=== PATIENT | female | born 1955 | race Asian ===

== ENCOUNTER 2018-08-12 14:24 | Emergency (ER) | payer OTHER ==
[~2018-08-12] VITALS: Ht 162.6 cm; Wt 50.3 kg
[2018-08-12 14:42] VITALS: BP 139/85
[2018-08-12 15:00] VITALS: BP 173/85
--- NOTE | 2018-08-12 15:26 | Emergency Room Report ---
History of Present Illness General Chief Complaint: Generalized Weakness Source: Patient Present Illness HPI This patient states that since her father on July 17, she has had a loss of appetite, fatigue and generalized weakness. She states that she occasionally has a cough. She does not have a sore throat. She denies body aches. She denies dysuria or hematuria. She denies chest pain or shortness of breath. She has no other complaints. Allergies: Coded Allergies: No Known Allergies (Unverified , 08/12/18) Patient History Past Medical History: see triage record, DM, HTN Social History: Denies: smoking, alcohol use, drug use Reviewed Nursing Documentation: PMH: Agreed; PSxH: Agreed Nursing Documentation-PMH Past Medical History: No History, Except For Hx Diabetes: Yes Review of Systems All Other Systems: negative except mentioned in HPI Physical Exam Vital Signs Date Time Temp Pulse Resp B/P (MAP) Pulse Ox O2 Delivery O2 Flow Rate FiO2 08/12/18 14:39 99.0 91 17 139/85 98 Room Air Sp02 EP Interpretation: reviewed, normal General Appearance: no apparent distress, alert, GCS 15, non-toxic Head: normocephalic, atraumatic Eyes: bilateral eye normal inspection, bilateral eye PERRL ENT: hearing grossly normal, normal pharynx, no angioedema, normal voice Neck: full range of motion, supple/symm/no masses Respiratory: chest non-tender, lungs clear, normal breath sounds, no respiratory distress, no retraction, no accessory muscle use, speaking full sentences Cardiovascular #1: regular rate, rhythm, no edema Gastrointestinal: normal bowel sounds, non tender, soft, non-distended, no guarding, no rebound Rectal: deferred Musculoskeletal: back normal, gait/station normal, normal range of motion, non- tender Neurologic: alert, oriented x3, responsive, motor strength/tone normal, sensory intact, speech normal Psychiatric: judgement/insight normal, memory normal, mood/affect normal, no suicidal/homicidal ideation Skin: normal color, no rash, warm/dry, well hydrated Medical Decision Making Diagnostic Impression: Primary Impression: Fatigue Additional Impressions: Depression Hypertension UTI (urinary tract infection) Poorly controlled diabetes mellitus ER Course This patient has very nonspecific complaints. Basic laboratory workup to include CBC, CMP is overall benign. The patient does have an elevated blood sugar with glucose in the 260s. The patient was educated that she needed to better control her blood sugar. She is also quite hypertensive here in the emergency department. I suspect this is undiagnosed. I will start the patient on lisinopril. The patient's urinalysis shows findings consistent with a possible urinary tract infection. The patient is asymptomatic. However, given the patient's ongoing symptoms, I did give the patient a dose of Rocephin and will place her on a course of antibiotics. The patient states that she had been on metformin while she was at [facility]. Given the poorly controlled blood sugar I will go ahead and restart metformin. The patient was instructed to follow-up closely with her primary care physician. At this time there is no indication for admission to the hospital. She is given close return precautions and follow-up instructions. Laboratory Tests Test 08/12/18 15:10 White Blood Count 8.3 K/UL (4.8-10.8) Red Blood Count 4.20 M/UL (4.20-5.40) Hemoglobin 12.8 G/DL (12.0-16.0) Hematocrit 37.2 % (37.0-47.0) Mean Corpuscular Volume 89 FL (80-99) Mean Corpuscular Hemoglobin 30.5 PG (27.0-31.0) Mean Corpuscular Hemoglobin Concent 34.4 G/DL (32.0-36.0) Red Cell Distribution Width 10.1 % (11.6-14.8) L Platelet Count 286 K/UL (150-450) Mean Platelet Volume 7.4 FL (6.5-10.1) Neutrophils (%) (Auto) 75.5 % (45.0-75.0) H Lymphocytes (%) (Auto) 16.0 % (20.0-45.0) L Monocytes (%) (Auto) 7.3 % (1.0-10.0) Eosinophils (%) (Auto) 0.7 % (0.0-3.0) Basophils (%) (Auto) 0.5 % (0.0-2.0) Urine Color Pale yellow Urine Appearance Slightly cloudy Urine pH 6 (4.5-8.0) Urine Specific [place] 1.010 (1.005-1.035) Urine Protein 3+ (NEGATIVE) H Urine Glucose (UA) 4+ (NEGATIVE) H Urine Ketones Negative (NEGATIVE) Urine Blood 3+ (NEGATIVE) H Urine Nitrite Positive (NEGATIVE) H Urine Bilirubin Negative (NEGATIVE) Urine Urobilinogen Normal MG/DL (0.0-1.0) Urine Leukocyte Esterase 2+ (NEGATIVE) H Urine RBC 5-10 /HPF (0 - 2) H Urine WBC 2-4 /HPF (0 - 2) Urine Squamous Epithelial Cells Few /LPF (NONE/OCC) Urine Amorphous Sediment Few /LPF (NONE) H Urine Bacteria Moderate /HPF (NONE) H Sodium Level 132 MMOL/L (136-145) L Potassium Level 4.2 MMOL/L (3.5-5.1) Chloride Level 95 MMOL/L (98-107) L Carbon Dioxide Level 27 MMOL/L (21-32) Anion Gap 10 mmol/L (5-15) Blood Urea Nitrogen 16 mg/dL (7-18) Creatinine 0.8 MG/DL (0.55-1.30) Estimate Glomerular Filtration Rate > 60 mL/min (>60) Glucose Level 260 MG/DL (74-106) H Calcium Level 8.7 MG/DL (8.5-10.1) Magnesium Level 2.0 MG/DL (1.8-2.4) Total Bilirubin 0.4 MG/DL (0.2-1.0) Aspartate Amino Transferase (AST) 14 U/L (15-37) L Alanine Aminotransferase (ALT) 18 U/L (12-78) Alkaline Phosphatase 82 U/L (46-116) Total Creatine Kinase 71 U/L (26-308) Creatine Kinase MB 0.9 NG/ML (0.0-3.6) Creatine Kinase MB Relative Index 1.2 Troponin I 0.000 ng/mL (0.000-0.056) Total Protein 7.5 G/DL (6.4-8.2) Albumin 2.8 G/DL (3.4-5.0) L Globulin 4.7 g/dL Albumin/Globulin Ratio 0.6 (1.0-2.7) L Thyroid Stimulating Hormone (TSH) 2.541 uiU/mL (0.358-3.740) Free Thyroxine 0.99 NG/DL (0.76-1.46) Free Triiodothyronine 1.8 pg/mL (2.3-4.2) L Acetone Level Negative (NEGATIVE) EKG Diagnostic Results Rate: normal Rhythm: NSR ST Segments: no acute changes Rhythm Strip Diag. Results EP Interpretation: yes Rate: 80's Rhythm: NSR, no PVC's, no ectopy Chest X-Ray Diagnostic Results Chest X-Ray Diagnostic Results : Chest X-Ray Ordered: Yes # of Views/Limited/Complete: 1 View Indication: Other Interpretation: no consolidation, no effusion, no pneumothorax, no acute cardiopulmonary disease Impression: No acute disease Electronically Signed by: Vivienne Bro DO Last Vital Signs Date Time Temp Pulse Resp B/P (MAP) Pulse Ox O2 Delivery O2 Flow Rate FiO2 08/12/18 14:39 99.0 91 17 139/85 98 Room Air Status: improved Disposition: HOME, SELF-CARE Condition: Improved Patient Instructions: Vivienne Flores DO Aug 12, 2018 15:26
[2018-08-12 15:30] VITALS: BP 186/94
[2018-08-12] MEDS ORDERED: JANUVIA100 MG ORAL (15:35)
[2018-08-12 15:38] LABS: BILIRUBIN, URINE NEGATIVE (NEGATIVE); COLOR,URINE PALE YELLOW; GLUCOSE, URINE (UA) 4+ (NEGATIVE); KETONES,URINE NEGATIVE (NEGATIVE); LEUKOCYTE ESTERASE ,URINE 2+ (NEGATIVE); NITRITE,URINE POSITIVE (NEGATIVE); PH,URINE 6 (4.5-8.0); PROTEIN,URINE 3+ (NEGATIVE); UROBILINOGEN,URINE NORMAL MG/DL (0.0-1.0)
[2018-08-12 15:51] LABS: BASOPHILS % (AUTO) 0.5 % (0.0-2.0); EOSINOPHILS % (AUTO) 0.7 % (0.0-3.0); HEMATOCRIT 37.2 % (37.0-47.0); HEMOGLOBIN 12.8 G/DL (12.0-16.0); MEAN CORPUSCULAR VOLUME 89 FL (80-99); MONOCYTES % (AUTO) 7.3 % (1.0-10.0); NEUTROPHILS % (AUTO) 75.5 % (45.0-75.0); PLATELET COUNT 286 K/UL (150-450); RED CELL DISTRIBUTION WIDTH 10.1 % (11.6-14.8); WHITE BLOOD COUNT 8.3 K/UL (4.8-10.8)
[2018-08-12 15:55] LABS: ANION GAP 10 mmol/L (5-15); BLOOD UREA NITROGEN 16 mg/dL (7-18); CALCIUM 8.7 MG/DL (8.5-10.1); CARBON DIOXIDE 27 MMOL/L (21-32); CHLORIDE 95 MMOL/L (98-107); CREATININE 0.8 MG/DL (0.55-1.30); POTASSIUM 4.2 MMOL/L (3.5-5.1); SODIUM 132 MMOL/L (136-145)
[2018-08-12 15:57] LABS: APPEARANCE,URINE SLIGHTLY CLOUDY
[2018-08-12 16:00] VITALS: BP 186/94
[2018-08-12 16:10] LABS: ALANINE AMINOTRANSFERASE 18 U/L (12-78); ALBUMIN 2.8 G/DL (3.4-5.0); ALBUMIN/GLOBULIN RATIO 0.6 (1.0-2.7); ALKALINE PHOSPHATASE 82 U/L (46-116); ASPARTATE AMINO TRANSFERASE 14 U/L (15-37); BILIRUBIN,TOTAL 0.4 MG/DL (0.2-1.0); CKMB 0.9 NG/ML (0.0-3.6); CREATINE KINASE 71 U/L (26-308)
[2018-08-12] MEDS ORDERED: Lisinopril 20mg tab ORAL ONE (16:30)
[2018-08-12] MEDS ORDERED: cefTRIAXone 1 GM in NS 55 ML IVPB ONE (16:45)
--- NOTE | 2018-08-12 16:57 | Diagnostic Imaging Report ---
Indication: Shortness of breath Technique: One view of the chest Comparison: none Findings: Lungs and pleural spaces are clear. The aorta is somewhat tortuous and ectatic. The heart size is normal Impression: No acute process
[2018-08-12] MEDS ORDERED: METFORMIN HCL500 M1 ORAL (17:38)
[2018-08-12] MEDS ORDERED: NITROFURANTOIN100 M2 ORAL (17:38)
[2018-08-12] MEDS ORDERED: LISINOPRIL10 MG ORAL (17:38)
[2018-08-12 17:53] VITALS: BP 165/103
[2018-08-12 18:17] VITALS: BP 169/103
--- NOTE | 2018-08-13 17:41 | Cardiology Report ---
APPROVED REPORT EKG Measurement Heart [id number] Normal sinus rhythm Normal ECG
[2018-08-17] MEDS ORDERED: BACTRIM DS TAB1 EAC1 ORAL (15:49)
== END 2018-08-12 18:20 | disposition home or self-care (01) ==
LOC: EMR 15:46
DX: R53.83 Other fatigue (principal); F32.9 Major depressive disorder, single episode, unspecified; N39.0 Urinary tract infection, site not specified; I10 Essential (primary) hypertension; E11.9 Type 2 diabetes mellitus without complications; R53.1 Weakness; R05 Cough; R42 Dizziness and giddiness
CPT/HCPCS: 36415; 71045; 80053; 81003; 82009; 82550; 82553; 82962; 83735; 84439; 84443; 84481; 84484; 85025; 87086; 87181; 93005; 96361; 96365; 96375; 99284; J0360; J0696

== ENCOUNTER 2018-08-18 13:43 | Emergency (ER) | payer OTHER ==
[~2018-08-18] VITALS: Ht 160 cm; Wt 54.4 kg
[~2018-08-18 13:43] MED LIST: BACTRIM DS TAB1 EAC1 ORAL; JANUVIA100 MG ORAL; LISINOPRIL10 MG ORAL; METFORMIN HCL500 M1 ORAL; NITROFURANTOIN100 M2 ORAL
--- NOTE | 2018-08-18 14:30 | Emergency Room Report ---
History of Present Illness General Chief Complaint: Female Urogenital Problems Source: Patient Present Illness HPI 63-year-old female patient presents ER for refill of urinary tract medication. States she was given urinary tract infection prescription but was called and told that the patient is not cover her infection. patient chart shows that she was called in prescription was called in for her for new antibiotic, states she did not fill the antibiotic, states she is here for prescription. Also reports history of diabetes, requesting that we check her blood sugar. Denies fever, chest pain, shortness of breath. Allergies: Coded Allergies: No Known Allergies (Unverified , 08/12/18) Patient History Past Medical History: see triage record Reviewed Nursing Documentation: PMH: Agreed; PSxH: Agreed Nursing Documentation-PMH Past Medical History: No History, Except For Hx Diabetes: Yes Review of Systems All Other Systems: negative except mentioned in HPI Physical Exam Vital Signs Date Time Temp Pulse Resp B/P (MAP) Pulse Ox O2 Delivery O2 Flow Rate FiO2 08/18/18 14:09 98.1 89 18 105/72 98 Sp02 EP Interpretation: reviewed, normal General Appearance: well appearing, no apparent distress, alert, GCS 15, non- toxic Head: normocephalic, atraumatic Eyes: bilateral eye normal inspection, bilateral eye PERRL ENT: hearing grossly normal, normal pharynx, no angioedema, normal voice, uvula midline, moist mucus membranes Neck: full range of motion Respiratory: lungs clear, normal breath sounds, no rhonchi, no respiratory distress, no accessory muscle use, no wheezing, speaking full sentences Cardiovascular #1: regular rate, rhythm, no edema Gastrointestinal: non tender, soft, no mass, non-distended, no guarding, no rebound Genitourinary: no CVA tenderness Musculoskeletal: back normal, digits/nails normal, gait/station normal, normal range of motion, non-tender Neurologic: alert, oriented x3, responsive, motor strength/tone normal, sensory intact Skin: no rash Medical Decision Making PA Attestation Dr. Bro is my supervising Physician whom patient management has been discussed with. Diagnostic Impression: Primary Impression: Encounter for medication refill Additional Impression: Hx of diabetes mellitus ER Course Pt. presents to the ED requesting urinary tract infection medication. multiple differentials considered. Vital signs: are WNL, pt. is afebrile ER COURSE: Informed by nurse patient had called previously and was requesting levofloxacin , informed patient that levofloxacin will not cover urinary tract infection due to resistance. reviewed previous patient chart. provide patient with Bactrim medication, informed patient not to take Macrobid antibiotic medication for UTI. blood sugar checks, elevated, does not require immediate intervention at this time, advised patient to take diabetes medications as instructed. Follow PCP. After completing discharge paperwork for patient patient requesting IV fluids. Provide patient with 500 IV fluids. she reports feeling better, okay for discharge. ER precautions given. DISCHARGE: At this time pt is stable for d/c to home. Patient is resting comfortably, in no acute distress, nontoxic appearing, talking without difficulty. Patient to take medications as instructed Will provide with patient care instructions and any necessary prescriptions. Care plan and follow-up instructions provided. Patient instructed to follow-up with primary care provider in 3 - 5 days. Patient questions asked and answered. Patient reports understanding and agreement to treatment plan. ER precautions given. Patient instructed to return to ER immediately for any new or worsening of symptoms including but not limited to increasing SOB, persistent fever, chest pain, intractable vomiting. - Please note that this Emergency Department Report was dictated using [employer] technology software, occasionally this can lead to erroneous entry secondary to interpretation by the dictation equipment. Last Vital Signs Date Time Temp Pulse Resp B/P (MAP) Pulse Ox O2 Delivery O2 Flow Rate FiO2 08/18/18 14:09 98.1 89 18 105/72 98 Disposition: HOME, SELF-CARE Condition: Stable Patient Instructions: Diabetes Mellitus and Food, Urinary Tract Infection Additional Instructions: Followup with primary care provider in 2-3 days and followup with and./or OBGYN. Take diabetes medications as instructed. Follow with primary care provider to discuss diabetes medication. Drink plenty of fluids. Take medications as directed. Patient questions asked and answered. ER precautions given, patient instructed to return to ER immediately for any new or worsening of symptoms. Alex Ortez Aug 18, 2018 14:30
[2018-08-18] MEDS ORDERED: Sodium Chloride 500ML 500 ML IV ONE (15:15)
[2018-08-18 16:08] VITALS: BP 167/87
[2018-08-18 16:09] VITALS: BP 167/87
== END 2018-08-18 16:10 | disposition home or self-care (01) ==
LOC: EMR 14:39
DX: Z76.0 Encounter for issue of repeat prescription (principal); N39.0 Urinary tract infection, site not specified; E11.9 Type 2 diabetes mellitus without complications
CPT/HCPCS: 99283